=== PATIENT | male | born 1995 | race African-American/Black ===

== ENCOUNTER 2019-06-03 12:25 | Emergency (ER) | payer OTHER ==
[~2019-06-03] VITALS: Ht 177.8 cm; Wt 89.0 kg
[2019-06-03] MEDS ORDERED: NAPROXEN 250 MG TAB PO ONE (13:00)
[2019-06-03] MEDS ORDERED: CYCLOBENZAPRINE 10 MG TAB PO ONE (13:00)
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
[2019-06-03 14:23] VITALS: BP 133/75
== END 2019-06-03 14:28 | disposition home or self-care (01) ==
LOC: M ED 12:25
DX: R07.81 Pleurodynia (principal); M25.512 Pain in left shoulder; V48.5XXA Car driver injured in noncollision transport accident in traffic accident, initial encounter

== ENCOUNTER 2019-06-09 12:06 | Emergency (ER) | payer OTHER ==
[~2019-06-09] VITALS: Ht 177.8 cm; Wt 83.8 kg
[2019-06-09] MEDS ORDERED: IBUPROFEN 800 MG TAB PO ONE (12:30)
[2019-06-09] MEDS ORDERED: NS 1,000 ML IV ONE (12:45)
[2019-06-09] MEDS ORDERED: dexameTHASONE 20 MG/5 ML VIAL (J1100) IV ONE (12:45)
[2019-06-09 13:04] LABS: BASO # 0.1 10^3/uL (0.0-0.2); BASO % 0.5 % (0.0-1.0); HEMATOCRIT 47.5 % (42.0-52.0); HEMOGLOBIN 15.8 g/dl (13.5-17.5); LYMPH # 1.9 10^3/uL (1.5-5.0); LYMPH % 12.4 % (24.0-44.0); MEAN CORPUSCULAR HEMOGLOBIN 28.5 pg (27.0-33.0); MEAN CORPUSCULAR HGB CONC 33.3 g/dl (32.0-36.5); MEAN CORPUSCULAR VOLUME 85.7 fl (80.0-96.0); MONO # 1.6 10^3/uL (0.0-0.8); MONO % 10.4 % (0.0-5.0); NEUTROPHILS # 11.6 10^3/uL (1.5-8.5); NEUTROPHILS % 76.4 % (36.0-66.0); PLATELET COUNT, AUTOMATED 164 10^3/uL (150-450); RED BLOOD COUNT 5.54 10^6/uL (4.30-6.10); WHITE BLOOD COUNT 15.2 10^3/uL (4.0-10.0)
[2019-06-09 13:08] LABS: INFLUENZA A AMPLIFICATION NEGATIVE (NEGATIVE); INFLUENZA B AMPLIFICATION NEGATIVE (NEGATIVE)
--- NOTE | 2019-06-09 13:16 | REP ---
PA and lateral chest: Comparison is 04/02/2020. There is a 12 mm nodule like density in the left parahilar zone. CT might be considered for confirmation. The lung marques otherwise clear. Cardiac size is normal. The luke, mediastinum, skeletal structures are unremarkable. Impression: 12 mm nodule like density in the left parahilar zone. Otherwise, negative PA and lateral chest. Electronically Signed by Lion Yepez MD 06/09/2019 01:08 P
[2019-06-09 13:36] LABS: ALBUMIN 3.8 GM/DL (3.2-5.2); ALT/SGPT 53 U/L (12-78); BILIRUBIN,TOTAL 2.1 MG/DL (0.2-1.0); BLOOD UREA NITROGEN 15 MG/DL (7-18); CALCIUM LEVEL 8.4 MG/DL (8.5-10.1); CARBON DIOXIDE LEVEL 27 MEQ/L (21-32); CHLORIDE LEVEL 98 MEQ/L (98-107); CREATININE FOR GFR 1.23 MG/DL (0.70-1.30); GLOMERULAR FILTRATION RATE > 60.0 (>60); GLUCOSE, FASTING 94 MG/DL (70-100); MONO REFLEX EBV COMP NEGATIVE (NEGATIVE); POTASSIUM SERUM 3.6 MEQ/L (3.5-5.1); SODIUM LEVEL 133 MEQ/L (136-145); TOTAL PROTEIN 8.2 GM/DL (6.4-8.2)
--- NOTE | 2019-06-09 13:52 | REP ---
Complete abdominal ultrasound for splenomegaly and tender spleen: There is no cholelithiasis, gallbladder wall thickening or pericholecystic fluid. There is no intrahepatic or extrahepatic biliary duct dilatation. The common biliary duct measures 2.9 mm in diameter. The hepatic parenchyma is homogeneous. The intrahepatic portal vein rush are somewhat echogenic. This is not unusual but may be artifactually accentuated in this thin size patient. The pancreas is obscured by bowel gas. The spleen is upper normal size measuring 10.1 x 9.8 x 3.9 cm for splenic index of 409. The splenic parenchyma is otherwise homogeneous and unremarkable. Right kidney measures 10/01 5.7 x 4.7 cm. Left kidney measures 11.6 x 5.6 by 6.0 cm. The kidneys are normal size. There are no solid or cystic renal masses. There are no renal calculi. There is no hydronephrosis. There is no abdominal aortic aneurysm. There is no abdominal free fluid. Impression: The spleen is upper normal size, homogeneous and otherwise unremarkable. Otherwise, essentially negative complete abdominal ultrasound. Electronically Signed by Lion Yepez MD 06/09/2019 01:43 P
[2019-06-09] MEDS ORDERED: ISOVUE-370 76% 100ML VIAL (Q9967) As Ordered ONE (14:14)
[2019-06-09 14:23] LABS: LIPASE 127 U/L (73-393)
--- NOTE | 2019-06-09 14:53 | REP ---
CT of the chest with IV contrast: Comparison is the PA and lateral plain film study earlier today that demonstrated a left perihilar 12 mm nodular density. By CT there is no left perihilar nodule. The finding on the comparison plain film study is likely artifact from vasculature. There are no nodules or masses otherwise. There are no infiltrates or effusions. There is no mediastinal, hilar or axillary lymph node enlargement. The thoracic aorta is unremarkable. Cardiac size is normal. There is no pericardial effusion. The visualized upper abdominal contents are unremarkable. Impression: Negative CT study of the chest. There is no left lung nodule. Electronically Signed by Lion Yepez MD 06/09/2019 02:44 P
[2019-06-09 15:09] LABS: BASO % 0.2 % (0.0-1.0); HEMATOCRIT 43.1 % (42.0-52.0); HEMOGLOBIN 14.3 g/dl (13.5-17.5); LYMPH # 0.7 10^3/uL (1.5-5.0); MEAN CORPUSCULAR HEMOGLOBIN 28.4 pg (27.0-33.0); MEAN CORPUSCULAR HGB CONC 33.2 g/dl (32.0-36.5); MEAN CORPUSCULAR VOLUME 85.7 fl (80.0-96.0); MONO # 0.4 10^3/uL (0.0-0.8); MONO % 2.7 % (0.0-5.0); NEUTROPHILS # 12.8 10^3/uL (1.5-8.5); NEUTROPHILS % 91.7 % (36.0-66.0); PLATELET COUNT, AUTOMATED 151 10^3/uL (150-450); RED BLOOD COUNT 5.03 10^6/uL (4.30-6.10)
--- NOTE | 2019-06-09 15:30 | REPVR ---
PROCEDURE INFORMATION: Exam: CT Neck With Contrast Exam date and time: 06/09/2019 2:30 PM Age: 23 years old Clinical indication: Mass, lump, or swelling in neck; Additional info: Right sided swelling, hoarseness, RO abscess TECHNIQUE: Imaging protocol: Computed tomography images of the neck with intravenous contrast. Radiation optimization: All CT scans at this facility use at least one of these dose optimization techniques: automated exposure control; mA and/or kV adjustment per patient size (includes targeted exams where dose is matched to clinical indication); or iterative reconstruction. Contrast material: ISOVUE 370; Contrast volume: 100 ml; Contrast route: IV; COMPARISON: No relevant prior studies available. FINDINGS: Brain: The visualized brain parenchyma is unremarkable. Sinuses: The visualized paranasal sinuses are clear. There are no air fluid levels to suggest acute sinusitis. Nasopharynx: Oropharynx: Examination reveals moderate submucosal soft tissue swelling in the nasopharynx and oropharynx suggesting tonsillitis and adenoiditis. There is moderate narrowing of the adjacent airway.There is no evidence of focal fluid collections to suggest abscess formation. Hypopharynx: Unremarkable. Larynx: Unremarkable. Normal epiglottis. Retropharyngeal space: Unremarkable. Submandibular/Parotid glands: Normal. Glands are normal in size. Thyroid: Normal. No enlarged or calcified nodules. Lymph nodes: Unremarkable. No lymphadenopathy. Trachea: Visualized trachea is unremarkable. Lungs: The visualized portions of the lung apices are normal. Dental: Metallic beam hardening artifact from dental hardware limits evaluation in this region. Mastoid air cells: The visualized mastoid air cells are clear. Bones/joints: The visualized osseous structures are unremarkable. No acute fracture or dislocation is seen. IMPRESSION: Examination reveals moderate submucosal soft tissue swelling in the nasopharynx and oropharynx suggesting tonsillitis and adenoiditis. There is moderate narrowing of the adjacent airway.There is no evidence of focal fluid collections to suggest abscess formation. Electronically signed by: Riley Severino On 06/09/2019 15:30:32 PM
[2019-06-09] MEDS ORDERED: AMPICILLIN SOD/SULBACTAM SOD 3 GM in D5W MINI-BAG PLUS 100 ML IV ONE (15:45)
--- NOTE | 2019-06-09 16:07 | REP ---
CT of the abdomen and pelvis for left upper quadrant pain an enlarged spleen: Comparisons comparison is the abdomen ultrasound performed earlier today. The the patient had intravenous contrast for a chest CT earlier today. The visualized lower lung marques are unremarkable. The hepatic parenchyma is homogeneous. The gallbladder and pancreas are normal size and unremarkable. The spleen measures 11 mm AP diameter by 11 mm craniocaudad diameter and is normal size. The splenic parenchyma is homogeneous and unremarkable. The adrenals are unremarkable. The kidneys are unremarkable. There is contrast in the renal collecting systems, ureters and bladder from the CT of the chest with IV contrast earlier today. The abdominal aorta is unremarkable. There is no retroperitoneal adenopathy or mass. There is no ascites. The bowel is unremarkable. The mesentery is unremarkable. There is no evidence of mesenteric inflammation or ascites, particularly in the left upper quadrant. The splenic flexure of the colon is unremarkable. Pelvis: The appendix is not identified, however there is no pericecal inflammation or abscess. The terminal ileum is unremarkable. The there is contrast in the bladder. The bladder is otherwise unremarkable. There is no ascites or adenopathy. The pelvic bowel loops are unremarkable. Impression: Essentially negative CT of the abdomen and pelvis. The spleen is normal size, homogeneous and otherwise unremarkable. . There are no inflammatory changes in the mesentery, particularly in the left upper quadrant. There is no mass or adenopathy. Electronically Signed by Lion Yepez MD 06/09/2019 03:58 P
[2019-06-09] MEDS ORDERED: IBUP-1022 PO (16:28)
[2019-06-09] MEDS ORDERED: AUGM875T28 PO (16:28)
[2019-06-09 16:51] VITALS: BP 119/67
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
[2019-06-12 14:16] LABS: EBV VIRAL CAPSID AG IgG 92.8 U/mL (0.0-17.9); EBV VIRAL CAPSID AG IgM <36.0 U/mL (0.0-35.9)
[2019-06-14 00:07] LABS: CMV QUANT DNA PCR (PLASMA) Negative (Negative)
== END 2019-06-09 17:26 | disposition home or self-care (01) ==
LOC: M ED 12:06
DX: J03.90 Acute tonsillitis, unspecified (principal); R50.9 Fever, unspecified; R05 Cough; R91.8 Other nonspecific abnormal finding of lung field
CPT/HCPCS: 70491; 71046; 71260; 74176; 76700; 80053; 83605; 83690; 85025; 85660; 86308; 86664; 86665; 87040; 87389; 87486; 87497; 87502; 87581; 87633; 87798; 87880; 96361; 96365; 96375; 99284; J1100; Q9967